=== PATIENT | female | born 1985 | race Caucasian/White ===

== ENCOUNTER 2017-11-23 19:23 | Emergency (ER) | payer OTHER ==
[~2017-11-23] VITALS: Ht 160 cm; Wt 68.9 kg
[2017-11-23 19:48] VITALS: BP 110/71; PULSE 94; TEMP 36.6; O2SAT 97; Ht 160 cm; Wt 68.9 kg
[2017-11-23] MEDS ORDERED: PROPARACAINE HCL 0.5% OP SOLN 15 ML BTL OP STA (19:58)
[2017-11-23] MEDS ORDERED: CIPROFLOXACIN HCL 0.3% OP SOLN 2.5 ML BTL OP ONE (20:30)
[2017-11-23] MEDS ORDERED: NORCO 5/325MG HOME PACK PO ONE (20:30)
[2017-11-23] MEDS ORDERED: PRENTAB26 PO (20:45)
--- NOTE | 2017-11-24 16:18 | EMERGENCY ROOM VISIT NOTE ---
ED Visit Note First contact with patient: 19:58 CHIEF COMPLAINT: Eye pain HISTORY OF PRESENT ILLNESS: This 32 year old female patient presents to the emergency department complaining of pain in the right eye for the past 1 hour. The patient was going out to dinner with her juancho, and as she was getting into her car, the zipper of her coat struck her eye. There has been a constant moderate pain and irritation, redness and tearing in the eye. There is a mild blurring of vision at times and light bothers the eye. The vision has not been decreased over all. The patient does not wear contacts. The patient rates the pain as sharp and 7/10. The patient has not had previous injuries to this eye. Tetanus shot is reportedly up to date. REVIEW OF SYSTEMS: A 6 system review of systems was completed with positives and pertinent negatives listed in the HPI. ALLERGIES:NKDA MEDICATIONS:No chronic medical disease PMH: Currently at 8 months SOCIAL HISTORY: Lives locally with PHYSICAL EXAM: Vital Signs: Reviewed Nurse's notes, vital signs stable. Visual acuity 20/25 bilateral. GENERAL: This is a white female, in no acute distress, but who is uncomfortable from the eye problem. Well-developed well-nourished. EYES: The pupils are equal round and reactive to light and accommodation. EOMs are full and without tenderness. There is discharge of clear tears from the right eye which is injected. There is no foreign body visible under the eyelid even after lid eversion. Funduscopic exam reveals no hemorrhages, papilledema, or other abnormalities. No foreign body was seen embedded in the cornea under slit lamp exam. The cornea was clear and no hyphema was seen. Fluorescein uptake was observed with ultraviolet light significant for a corneal abrasion at 9:00. EMERGENCY DEPARTMENT COURSE: I examined the patient. Alcaine 2 drops were placed in the patient's right eye. A slit lamp exam was performed as above. Ciloxan two drops was placed in the patient's right eye. The patient was discharged home in good condition with instructions as below. Current/Historical Medications Scheduled Multivit/Min/Iron/Fol Ac/Pren ( Vitamin), 1 TAB PO DAILY Allergies Coded Allergies: No Known Allergies (Unverified Allergy, Mild, 05/27/06) Vital Signs Date Time Temp Pulse Resp B/P (MAP) Pulse Ox O2 Delivery O2 Flow Rate FiO2 11/23/17 19:48 36.6 94 18 110/71 97 Room Air Medications Administered Medications (Trade) Dose Ordered Sig/Agnieszka Route Start Time Stop Time Status Last Admin Dose Admin Ciprofloxacin HCl (Ciprofloxacin 0.3% Op Soln) 2 drops NOW ONCE OP 11/23/17 20:30 11/23/17 20:31 DC 11/23/17 20:30 2 DROPS Acetaminophen/ Hydrocodone Bitart ([place] 5/325mg Home Pack) 1 homepack UD ONCE PO 11/23/17 20:30 11/23/17 20:31 DC 11/23/17 20:30 1 HOMEPACK Departure Information Impression Primary Impression: Corneal abrasion, right Dispostion Home / Self-Care Condition GOOD Forms HOME CARE DOCUMENTATION FORM, IMPORTANT VISIT INFORMATION Patient Instructions My [facility] Additional Instructions You were seen and evaluated today on an emergency basis only. This is not a substitute for, or an effort to provide, complete comprehensive medical care. It is not possible to recognize and treat all injuries or illnesses in a single emergency department visit. For this reason it is recommended that you followup with your primary care physician or eye doctor next week if symptoms persist. [place] (hydrocodone/acetaminophen) 5/325 mg (homepack) every 6 hours as needed for worsening breakthrough pain. Do not drink or drive on [place]. This medication will likely make you tired. Do not take [place] and Tylenol at the same time as both contain acetaminophen. [place] may cause constipation. You may wish to take an [id number] stool softener like Colace if this occurs. Use Ciloxan Eye Drops: Instill 1-2 drops into the conjunctival sac every 2 hours while awake for 2 days and 1-2 drops every 4 hours while awake for the next 5 days You are welcome to return to the emergency department anytime with new, worsening, or concerning symptoms.
== END 2017-11-23 20:39 | disposition home or self-care (01) ==
LOC: C.EDB 19:25 → C.EDD 20:39
DX: S05.01XA Injury of conjunctiva and corneal abrasion without foreign body, right eye, initial encounter (principal); X58.XXXA Exposure to other specified factors, initial encounter; Z3A.32 32 weeks gestation of pregnancy

== ENCOUNTER 2017-12-13 03:12 | Inpatient (IN) | payer OTHER ==
[~2017-12-13] VITALS: Ht 160 cm; Wt 69.5 kg
[~2017-12-13 03:12] MED LIST: PRENTAB26 PO
[2017-12-17 15:02] VITALS: Ht 160 cm; Wt 69.5 kg
[2017-12-17] MEDS ORDERED: MISOPROSTOL 25 MCG TAB PV ONE (16:00)
[2017-12-17 16:27] LABS: HEMATOCRIT 38.7 % (37-47); HEMOGLOBIN 13.4 g/dL (12.0-16.0); MEAN CELL VOLUME 88.4 fL (80-100); MEAN CORPUSCULAR HEMOGLOBIN 30.6 pg (25-34); MEAN CORPUSCULAR HGB CONC 34.6 g/dl (32-36); MEAN PLATELET VOLUME 9.7 fL (7.4-10.4); PLATELET COUNT 245 K/uL (130-400); RED CELL DISTRIBUTION WIDTH CV 13.1 % (11.5-14.5); RED CELL DISTRIBUTION WIDTH SD 41.7 fL (36.4-46.3); WHITE BLOOD COUNT 11.73 K/uL (4.8-10.8)
--- NOTE | 2017-12-17 16:28 | Progress Note ---
Progress Note Date of Service Dec 17, 2017. Progress Note Admit Note 32 F P0000 at 40.3 weeks admitted from office with non-reactive NST and BPP 01/20. Cervix 2/60/-2/vertex. FHT Cat 1. GBS is negative. EFW is 6.5 lbs. Will plan for induction of labor with Cytotec. Cytotec 25 mcg placed in vagina.
[2017-12-17] MEDS: LACTATED RINGER'S 1000ML 1,000 ML IV PRN (17:29)
--- NOTE | 2017-12-17 17:43 | HISTORY & PHYSICAL EXAMINATION ---
DATE OF ADMISSION: 12/17/2017 REASON FOR ADMISSION: Post-dates with poor testing in the office. HISTORY OF PRESENT ILLNESS: The patient is a 32-year-old female para 0-0-0-0 at 40 and 4 weeks, admitted from the office with a nonreactive NST and a biophysical profile of 4/8. The patient had an LEVAR which was 5. She was examined in the office by myself and she was found to be 2, 50%, minus 2, vertex posterior, soft. Her GBS is negative. PAST MEDICAL HISTORY: Negative. PAST SURGICAL HISTORY: Negative. ALLERGIES: No known allergies. MEDICATIONS: vitamins. SOCIAL HISTORY: Denies smoking, alcohol or drug use. The patient had her Tdap. PHYSICAL EXAMINATION: HEENT: Within normal limits. LUNGS: Clear to auscultation. COR: Regular rate and rhythm. ABDOMEN: Gravid, size less than dates. PELVIS: Cervix was 2, 50%, minus 2, vertex. EXTREMITIES: Within normal limits. No edema. No rash. NEUROLOGICALLY: Intact. ASSESSMENT: Post-dates measuring small with poor testing. PLAN: Induction of labor. Plan for Cytotec.
[2017-12-17] MEDS: LACTATED RINGER'S 1000ML 1,000 ML IV SCH (21:02)
[2017-12-17] MEDS ORDERED: LACTATED RINGER'S 1000ML 500 ML IV PRN (23:49)
[2017-12-18] MEDS ORDERED: BUPIVACAINE 0.25% 30 ML VIAL ONE (03:36)
[2017-12-18] MEDS ORDERED: FENTANYL 2MCG/ML ROPIV 1.25MG/ML 100ML BAG EPI ONE (03:36)
[2017-12-18] MEDS ORDERED: EpHEDrine SULFATE INJ 50 MG/ML AMP ONE (03:36)
[2017-12-18] MEDS ORDERED: FENTANYL CITRATE INJ 50 MCG/1 ML 2 ML VIAL ONE (03:36)
[2017-12-18] MEDS: LACTATED RINGER'S 1000ML 1,000 ML IV PRN (03:59)
[2017-12-18] MEDS ORDERED: LACTATED RINGER'S 1000ML 500 ML IV PRN (04:31)
[2017-12-18] MEDS ORDERED: NALOXONE HCL INJ 1 MG in SODIUM CHLORIDE 0.9% 1000ML 1,000 ML IV PRN (04:31)
[2017-12-18] MEDS ORDERED: EpHEDrine SULFATE INJ 50 MG/ML AMP IV PRN (04:45)
[2017-12-18] MEDS ORDERED: NALOXONE HCL INJ 0.4 MG/1 ML VIAL/CARP IV PRN (04:45)
[2017-12-18] MEDS ORDERED: ONDANSETRON INJ 2 MG/ML 2 ML VIAL IV PRN (04:45)
[2017-12-18] MEDS ORDERED: DiphenhydrAMINE HCL 50 MG/ML VIAL IV PRN (04:45)
[2017-12-18] MEDS ORDERED: NALBUPHINE HCL INJ 10 MG/ML AMP IV PRN (04:45)
[2017-12-18] MEDS: FENTANYL 2MCG/ML ROPIV 1.25MG/ML 100ML BAG EPI PRN ×2 (06:56→10:32)
[2017-12-18] MEDS: LACTATED RINGER'S 1000ML 1,000 ML IV SCH (07:04)
[2017-12-18] MEDS ORDERED: MISOPROSTOL 200 MCG TAB ONE (12:23)
[2017-12-18] MEDS ORDERED: BENZOCAINE 20% AER SPR 82.5 GM CAN EXT PRN (13:00)
[2017-12-18] MEDS ORDERED: LANOLIN OINT EXT PRN (13:00)
[2017-12-18] MEDS ORDERED: SUPERCREAM 0.870 % 15GM JAR EXT PRN (13:00)
[2017-12-18] MEDS ORDERED: OXYCODONE/ACETAMINOPHEN 5-325 TAB PO PRN (13:00)
[2017-12-18] MEDS ORDERED: HYDROCORTISONE ACETATE 25 MG SUPP PR PRN (13:00)
[2017-12-18] MEDS ORDERED: OXYTOCIN 30 UNITS/500ML NSS IV PRN ×2 (13:00)
[2017-12-18] MEDS ORDERED: ACETAMINOPHEN/CODEINE 300/30MG TAB PO PRN ×2 (13:00)
[2017-12-18] MEDS ORDERED: ACETAMINOPHEN 325 MG TAB PO PRN (13:00)
[2017-12-18] MEDS ORDERED: MISOPROSTOL 200 MCG TAB PR SCH (13:00)
--- NOTE | 2017-12-18 13:11 | OPERATIVE REPORT ---
DATE OF OPERATION: 12/18/2017 DELIVERY NOTE The patient delivered a live female in left occiput anterior presentation with left hand compound presentation. There was tight nuchal cord, which was cut and reduced. was delivered. Terminal meconium was seen after delivery. was handed over to the waiting pediatric team. required some resuscitation. Details of infant's weight and , dictation in the pediatric record. Placenta was spontaneously delivered. Inspection of the placenta showed that there was meconium stained. Placenta appeared grossly normal, otherwise with a 3-vessel cord. Inspection of the perineum showed a second-degree midline laceration which was repaired in layers with 3-0 and 2-0 Vicryl. Rectal exam post repair showed good sphincter tone. There are no sutures palpated in the rectum. Estimated blood loss is 500 mL. The patient is doing well. All instruments were removed from the vagina including retractors, sponges and needles and accounted for x2. The patient is doing well in recovery. ADDENDUM: The patient desired cord blood, so that was collected prior to delivery of the placenta. I attest to the content of the Intraoperative Record and any orders documented therein. Any exception s are noted below.
--- NOTE | 2017-12-18 14:22 | Anesthesia Procedure Note ---
Anesthesia Epidural Removal Nt Date & Time Dec 18, 2017 at 14:21 Vital Signs Pain Intensity: 2.0 Notes Mental Status: alert / awake / arousable, participated in evaluation Nausea / Vomiting: adequately controlled Pain: adequately controlled Airway Patency, RR, SpO2: stable & adequate BP & HR: stable & adequate Hydration State: stable & adequate Neuraxial Anesthesia: was administered, sensory block is resolving Anesthetic Complications: no major complications apparent, pt satisfied with anesthetic care Epidural: removed without complications, with tip intact
[2017-12-18 16:00] VITALS: BP 123/84; PULSE 99; TEMP 37; O2SAT 97
[2017-12-18] MEDS: IBUPROFEN 600 MG TAB PO PRN ×2 (16:23→20:28)
[2017-12-18 19:40] VITALS: BP 111/70; PULSE 98; TEMP 36.6
[2017-12-18] MEDS: DOCUSATE SODIUM 100 MG CAP PO SCH (20:27)
[2017-12-19 00:05] VITALS: BP 113/77; PULSE 78; TEMP 36.7
[2017-12-19] MEDS: IBUPROFEN 600 MG TAB PO PRN ×4 (00:36→14:56)
[2017-12-19 06:31] LABS: HEMATOCRIT 32.1 % (37-47); HEMOGLOBIN 11.2 g/dL (12.0-16.0)
[2017-12-19 08:00] VITALS: BP 119/78; PULSE 73; TEMP 36.4; O2SAT 98
[2017-12-19] MEDS: DOCUSATE SODIUM 100 MG CAP PO SCH ×2 (08:48→19:51)
[2017-12-19] MEDS: FERROUS SULFATE 325 MG TAB PO SCH (08:50)
[2017-12-19] MEDS: PRENATAL VITAMIN TAB PO SCH (08:51)
--- NOTE | 2017-12-19 11:46 | OB/GYN Progress Note ---
METER RECORD CLERK Progress Note Date of Service Dec 19, 2017. Subjective conversation w/ patient, physical exam Ambulation: ambulating normally Voiding: no voiding problems Passing Gas: Yes Diet Tolerance: Regular Diet Lochia: Small Feeding Type: Breast Feeding Objective Vital Signs Date Time Temp Pulse Resp B/P (MAP) Pulse Ox O2 Delivery O2 Flow Rate FiO2 12/19/17 08:00 36.4 73 18 119/78 (92) 98 Room Air 12/19/17 08:00 Room Air 12/19/17 00:05 36.7 78 18 113/77 (89) Room Air 12/19/17 00:05 Room Air 12/18/17 19:40 36.6 98 16 111/70 (84) Room Air 12/18/17 19:40 Room Air 12/18/17 16:00 37.0 99 18 123/84 (97) 97 Room Air Physical Exam General Appearance: WELL-APPEARING, NO APPARENT DISTRESS Abdomen: non tender, soft Fundus: Firm Extremities: non-tender, normal inspection, no pedal edema Laboratory Results Last 24 Hours Test 12/19/17 06:02 Hemoglobin 11.2 g/dL Hematocrit 32.1 % Assessment and Plan Post- Day Number: 1 Continue Routine Care: tentative discharge in AM
[2017-12-19 16:45] VITALS: BP 113/76; PULSE 85; TEMP 36.7; O2SAT 97
[2017-12-19] MEDS ORDERED: BISACODYL 5 MG TABEC PO SCH (20:00)
[2017-12-19 23:00] VITALS: BP 109/72; PULSE 90; TEMP 36.3
[2017-12-20] MEDS: IBUPROFEN 600 MG TAB PO PRN (00:49)
[2017-12-20 06:47] LABS: HEMATOCRIT 32.3 % (37-47); HEMOGLOBIN 11.3 g/dL (12.0-16.0); MEAN CELL VOLUME 89.2 fL (80-100); MEAN CORPUSCULAR HEMOGLOBIN 31.2 pg (25-34); MEAN PLATELET VOLUME 9.3 fL (7.4-10.4); PLATELET COUNT 202 K/uL (130-400); RED CELL DISTRIBUTION WIDTH CV 13.2 % (11.5-14.5); RED CELL DISTRIBUTION WIDTH SD 43.4 fL (36.4-46.3); WHITE BLOOD COUNT 14.46 K/uL (4.8-10.8)
[2017-12-20] MEDS ORDERED: BISACODYL 10 MG SUPP PR PRN (07:00)
[2017-12-20 07:20] VITALS: BP 116/75; PULSE 85; TEMP 36.6; O2SAT 98
[2017-12-20] MEDS: FERROUS SULFATE 325 MG TAB PO SCH (08:21)
[2017-12-20] MEDS: PRENATAL VITAMIN TAB PO SCH (08:21)
[2017-12-20] MEDS: DOCUSATE SODIUM 100 MG CAP PO SCH (08:21)
--- NOTE | 2017-12-20 08:48 | OB/GYN Progress Note ---
[employer] Progress Note Date of Service Dec 20, 2017. Subjective conversation w/ patient, physical exam Ambulation: ambulating normally Voiding: no voiding problems Passing Gas: Yes Diet Tolerance: Regular Diet Lochia: Moderate Feeding Type: Breast Feeding Review of Systems Constitutional: No fever, No chills, No sweats, No weight loss, No weakness, No fatigue, No problem reported Respiratory: No cough, No sputum, No wheezing, No shortness of breath, No dyspnea on exertion, No dyspnea at rest, No hemoptysis, No problem reported Cardiac: No chest pain, No orthopnea, No PND, No edema, No claudication, No palpitations, No problem reported Breast: No see HPI, No breast lump, No change in shape, No nipple discharge, No breast pain, No problem reported Abdomen: No pain, No nausea, No vomiting, No diarrhea, No constipation, No GI bleeding, No problem reported Female : No see HPI, No dysuria, No urinary frequency, No hematuria, No incontinence, No abnormal vaginal bleeding, No vaginal discharge, No problem reported Objective Vital Signs Date Time Temp Pulse Resp B/P (MAP) Pulse Ox O2 Delivery O2 Flow Rate FiO2 12/20/17 07:20 36.6 85 16 116/75 (89) 98 Room Air 12/19/17 23:00 Room Air 12/19/17 23:00 36.3 90 20 109/72 (84) Room Air 12/19/17 16:45 36.7 85 20 113/76 (88) 97 Room Air 12/19/17 16:45 Room Air Physical Exam General Appearance: WELL-APPEARING, WD/WN, NO APPARENT DISTRESS Respiratory/Chest: chest non-tender, lungs clear, normal breath sounds Cardiovascular: regular rate, rhythm, no edema, no gallop Abdomen: normal bowel sounds, non tender, soft Fundus: Firm Extremities: normal range of motion, non-tender, normal inspection Laboratory Results Last 24 Hours Test 12/20/17 06:17 White Blood Count 14.46 K/uL Red Blood Count 3.62 M/uL Hemoglobin 11.3 g/dL Hematocrit 32.3 % Mean Corpuscular Volume 89.2 fL Mean Corpuscular Hemoglobin 31.2 pg Mean Corpuscular Hemoglobin Concent 35.0 g/dl RDW Standard Deviation 43.4 fL RDW Coefficient of Variation 13.2 % Platelet Count 202 K/uL Mean Platelet Volume 9.3 fL Assessment and Plan Post- Day Number: 2 Continue Routine Care: PPD #2 pt doing well disch home with instructions
[2017-12-20] MEDS ORDERED: FRRS300 PO (10:24)
[2017-12-20] MEDS ORDERED: MTR600X PO (10:25)
--- NOTE | 2017-12-20 10:25 | Discharge Instructions ---
Discharge Instructions Date of Service Dec 20, 2017. Admission Reason for Admission: Induction Discharge Discharge Diagnosis / Problem: Discharge Goals Goal(s): Routine recovery after delivery Activity Recommendations Activity Limitations: as noted below ACTIVITY RECOMMENDATIONS: * Gradual return to full activity over the next 2-3 weeks. * No lifting - nothing heavier than baby over the next 2-3 weeks. * Do not engage in vigorous exercise, sexual activity or sports until cleared by your physician. * Do not drive or operate any motorized equipment until cleared by your physician. * You may shower/bathe daily. BREAST CARE: If you are not breast feeding: * Wear a supportive bra 24 hours a day for one to two weeks. * Avoid stimulating your breasts and nipples as much as possible during the first few weeks after delivery. * When taking a shower, have the warm water hit your back, not breasts. * When your breasts feel full, apply ice packs. Usually three to four times a day helps ease the discomfort. * Take a mild pain medication (Tylenol/Motrin) when you are uncomfortable. If breast feeding: * Use breast milk to lubricate nipples. Lansinoh cream may be used for sore nipples. You do not need to remove cream prior to breast feeding. If using a different brand of cream, check the label for directions regarding removal of cream prior to nursing. * Wear a supportive bra. * If having problems with breasts or breast feeding, call a coding consultant or your health care provider. EPISIOTOMY CARE: After delivery, if you have an episiotomy (stitches), the following steps will ease discomfort and aid healing. * For the first 24 hours after delivery, place ice packs next to your episiotomy to help reduce swelling. * After the first 24 hour-period, sitz baths, either portable or in the tub, are suggested. A shower with a shower arm sprayed over the episiotomy may be comforting. * Vesta care should be done after each voiding and bowel movement. Squirt warm water from a plastic bottle over the perineum (region of the body between the anus and urinary opening) and pat dry. * Use Dermoplast to ease discomfort. Shake container. [place] directly over the episiotomy. * Place a Tucks on a clean sanitary pad next to your episiotomy. OVER THE COUNTER MEDICATION: * For discomfort or pain, you may use Acetaminophen (Tylenol), Ibuprofen (Advil ), or Naproxen (Aleve) following the package directions. * For constipation you may use Colace following the package directions. SPECIAL CARE INSTRUCTIONS: When you are discharged from the hospital, it is important for you to follow the instructions listed below: * During the first week at home, you should be able to care for yourself and your baby. In addition, the usual light household activities are encouraged. * Limit your activities to the way you feel. Do not try to clean the house or move furniture. Be sensible. * If you actively engage in sports and have done so up until the time of your delivery, you may resume these activities as soon as you feel able. This may take up to one month or even longer. Use good judgment. * Continue to take your vitamins for at least six weeks after the of your baby. * Your diet need not be limited unless you were on a special diet before your delivery. Breast-feeding mothers need around 2500 calories per day and at least 64-80 ounces of fluid per day (8 to 10 glasses). * You should eat foods from the four major food groups. Crash diets or fad diets are to be avoided. Eating lean meats, fresh fruits and vegetables, low-fat dairy products, high fiber foods and a regular exercise program, will help you get back to your pre- weight without putting your health at risk. * Constipation is sometimes a problem after delivery. Take a mild laxative as needed. If breast feeding, Milk of Magnesia is acceptable to use. You may use a suppository or Fleets enema if no episiotomy. * A daily shower or tub bath is suggested. Be sure to thoroughly and gently dry the perineum. * A bloody vaginal discharge will usually continue until around four weeks post . A small amount of bleeding may continue for as long as six weeks. Vaginal discharge changes from the bright red bleeding after delivery to pink then brownish and finally yellowish-pink before becoming white and disappearing. * Bleeding may increase with activity. Your first period may come in 4-8 weeks. If you are breast feeding, your period may be delayed even longer. * Lapwai (sex) can begin whenever both you and your partner feel comfortable and do not have any form of genital infection. It is recommended that you wait until after your return appointment and discuss with your physician. If you have questions, please talk to your health care practitioner. A condom should be used to prevent infection and . * Foreplay, gentle intercourse and lubrication is very important the first several times to prevent pain. A water-based lubricant such as K-Y jelly or Astroglide may be used. * Tampons may be used six weeks after delivery. * Douching should be avoided for 6 weeks after delivery. * If you have RH negative blood and your baby is RH positive, you will receive RHOGAM by injection prior to discharge. The nurse will give you a card to keep with you that has the date and place that you received RHOGAM after delivery. * During your care, you had a Rubella screen done to check for the presence of rubella antibodies in your blood. If your test was negative, you will receive a Rubella vaccine prior to discharge. This vaccine may cause a fever, soreness at the injection site and flu-like symptoms. If these symptoms persist, notify your health care practitioner. is not advised for three months after a Rubella vaccine. There is a higher chance of having a baby with defects if conceived within three months of getting the vaccine. * If you were discharged 24 hours from delivery or before 48 hours: Visiting nurses will come to your home 48 hours after discharge to assess you and your baby. The visiting nurse will meet with you while you are in the hospital to arrange a time and get directions to your home. * Verbalizes understanding of car seat law as reviewed with patient nursing. * Car Seat hand-out given and reviewed with patient by nursing. * Shaken baby information reviewed with patient by nursing. Call you doctor if: * Heavy bleeding (saturating several pads an hour) or passing clots the size of your fist. * A fever >101 degrees F (38.3 degrees C) on two occasions four hours apart and/or chills. * Unusual pain in the pelvic or vaginal areas. * "Baby Blues" lasting longer than two weeks. If you have any questions or concerns, call your health care practitioner at . FOLLOW-UP VISIT: * Please call the office at to schedule a 6 week examination. It is important you keep this appointment. * It is important for you to make arrangements for either yearly or twice yearly check-ups thereafter. . Current Hospital Diet Patient's current hospital diet: Regular OB Diet Discharge Diet Recommended Diet: Regular Diet Pending Studies Studies pending at discharge: no Medical Emergencies . Who to Call and When: Medical Emergencies: If at any time you feel your situation is an emergency, please call 911 immediately. . Non-Emergent Contact Non-Emergency issues call your: Specialist . . "Provider Documentation" section prepared by Joseph Benitez. .
[2017-12-20 11:55] VITALS: BP 125/85; PULSE 71; TEMP 36.4; O2SAT 98
[2017-12-20 14:30] VITALS: BP_DIAS 85; PULSE 71; TEMP 36.4
== END 2017-12-20 15:45 | disposition home or self-care (01) | DRG 775 ==
LOC: C.LD 12-17 14:37 → C.OBG 12-18 16:06
PROVIDERS: ADMIT Obstetrics & Gynecology; ATTEND Obstetrics & Gynecology
PROC: 3E0P7GC Introduction of Other Therapeutic Substance into Female Reproductive, Via Natural or Artificial Opening (ICD-10-PCS; 2017-12-17)
PROC: 10E0XZZ Delivery of Products of Conception, External Approach (ICD-10-PCS; principal; 2017-12-18)
PROC: 0KQM0ZZ Repair Perineum Muscle, Open Approach (ICD-10-PCS; principal; 2017-12-18)
DX: O48.0 Post-term pregnancy (principal); O77.0 Labor and delivery complicated by meconium in amniotic fluid; O64.4XX0 Obstructed labor due to shoulder presentation, not applicable or unspecified; O75.81 Maternal exhaustion complicating labor and delivery; O70.1 Second degree perineal laceration during delivery; O69.1XX0 Labor and delivery complicated by cord around neck, with compression, not applicable or unspecified; Z3A.40 40 weeks gestation of pregnancy; Z37.0 Single live birth